=== PATIENT | male | born 2000 ===

== ENCOUNTER 2025-01-18 19:34 | Emergency (ER) | payer SELFPAY ==
[2025-01-18 19:37] VITALS: BP 120/67; PULSE 69; RESP 16; TEMP 37.1; O2SAT 99
--- NOTE | 2025-01-18 21:19 | PC.NURSE ---
Patient called for room placement @ [id number]. No answer.
--- NOTE | 2025-01-18 21:21 | PC.NURSE ---
Pt. call x1 in [facility] to be brought back to a room with no reply.
--- NOTE | 2025-01-18 21:48 | PC.NURSE ---
Pt. called in [facility] x2 to be brought back to a room with no reply.
== END 2025-01-18 21:48 | disposition left against medical advice (07) ==
DX: T15.91XA Foreign body on external eye, part unspecified, right eye, initial encounter (principal)
CPT/HCPCS: 99199